=== PATIENT | male | born 1990 ===

== ENCOUNTER 2018-03-18 15:07 | Emergency (ER) | payer SELFPAY ==
[2018-03-18 15:23] VITALS: BMI 24.2
[2018-03-18 15:30] VITALS: TEMP 98.3
[2018-03-18] MEDS ORDERED: TDAP Vaccine 0.5 mL Syr IM ONE (16:17)
--- NOTE | 2018-03-18 16:17 | ED PDOC ---
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 Patient stated while carrying pipes, he stumbled into a window, causing to breaking window glass, and getting laceration. Last tetanus is [place]. Patient has FROM on affected extremity. Denies other complains. Time/Duration: Other (see hpi) Context: Home Past Medical History - Provider Review Nursing Documentation Reviewed: Yes - Psychiatric Hx Substance Use: No Family/Social History - Physician Review Nursing Documentation Reviewed: Yes Family/Social History: Other (noncontributory) Smoking Status: Light Smoker < 10 Cigarettes Daily Hx Alcohol Use: No Hx Substance Use: No Allergies/Home Meds Allergies/Adverse Reactions: Allergies No Known Allergies Allergy (Verified 03/18/18 15:22) Review of Systems - Review of Systems Constitutional: Normal. absent: Fatigue, Weight Change, Fevers, Night Sweats Eyes: Normal ENT: Normal Respiratory: Normal Cardiovascular: Normal Gastrointestinal: Normal Genitourinary Male: Normal Musculoskeletal: Normal Skin: Laceration (see hpi) Neurological: Normal Endocrine: Normal Hemo/Lymphatic: Normal Psychiatric: Normal Physical Exam Vital Signs Temp Pulse Resp BP Pulse Ox 03/18/18 15:08 98.3 F 62 20 113/70 99 Temperature: Afebrile Blood Pressure: Normal Pulse: Regular Respiratory Rate: Normal Appearance: Positive for: Well-Appearing, Non-Toxic, Comfortable Pain Distress: None Mental Status: Positive for: Alert and Oriented X 3 - Systems Exam Head: Present: Atraumatic Pupils: Present: PERRL Extroacular Muscles: Present: EOMI Conjunctiva: Present: Normal Mouth: Present: Moist Mucous Membranes Upper Extremity: Present: Normal ROM, NORMAL PULSES, Neurovascularly Intact, Capillary Refill < 2s, Other ((+) 2.6 cm left lateral wrist laceration. (+) 2 small laceration on the abterior wrist araea with superficial abrasion.) Lower Extremity: Present: Normal Inspection, Normal ROM Neurological: Present: GCS=15, CN II-XII Intact, Speech Normal Skin: Present: Warm, Dry, Normal Color. No: Rashes Psychiatric: Present: Alert, Oriented x 3, Normal Insight, Normal Concentration Medical Decision Making ED Course and Treatment: 03/18/18 16:46 Re-evaluation. Patient feels better. Discussed results and plan with patient who expresses understanding. All questions answered and there is agreement with the plan to discharge home with instructions. Patient stable for discharge. Return if symptoms persist or worsen. Patient was recommended to keep wound clean and dry for 2 days, and then to clean wound daily with soap and water. Suture to be removed by ED or PMD in 10 days. To return sooner if wound gets infected. See pmd in 2 days for wound check. Re-evaluation Time: 16:49 Reassessment Condition: Re-examined, Improved - Medication Orders Current Medication Orders: Discontinued Medications Tetanus/Reduced Diphtheria/Acell Pertussis (Boostrix Vaccine Inj) 0.5 ml IM .ONCE ONE Stop: 03/18/18 16:18 Last Admin: 03/18/18 16:46 Dose: 0.5 ml [facility] Immunization Data Document 03/18/18 16:46 [place] (Rec: 03/18/18 16:46 [place] [id number]) Immunization Data Vaccine Information Sheet Given Yes - Procedure PROCEDURE NOTE (Text): 03/18/18 16:50 PROCEDURE: LACERATION REPAIR Performed by the emergency provider Location: left wrist, 3 lac Length: 2.6 cm, 0.6cm, and 0.4 cm Description: clean wound edges, no foreign bodies Distal CMS: Normal. No deficits. Neurovascularly intact. Anesthesia: Lidocaine 1% with Epi, approx. 1 cc Preparation: The wound was cleaned with NS and [place]. The area was prepped and draped in the usual sterile fashion. Exploration: The wound was explored and no foreign bodies were found. Procedure: The wound was closed with 5-0 nylon, single layer, interrupted. There was good approximation. In total, 7 sutures were used, total 3.6 cm. Post-Procedure: Good closure and hemostasis. The patient tolerated the procedure well and there were no complications. CSM remains intact. Post procedure dressing applied. Disposition/Present on Arrival - Present on Arrival Any Indicators Present on Arrival: No History of DVT/PE: No History of Uncontrolled Diabetes: No Urinary Catheter: No History of Decub. Ulcer: No History Surgical Site Infection Following: None - Disposition Have Diagnosis and Disposition been Completed?: Yes Diagnosis: Wrist laceration Disposition: HOME/ ROUTINE Disposition Time: 17:04 Patient Plan: Discharge Patient Problems: Current Active Problems Problem Status Onset Wrist laceration Acute Condition: GOOD Discharge Instructions (ExitCare): Laceration Repair With Stitches (DC) Additional Instructions: Call private doctor for follow up visit in 1-2 days for wound check. Keep wound clean and dry for 2 days, then clean wound daily with soap and water daily. take medication as instructed. Return to emergency if symptoms worsen. Return to ED in 10 days to have sutures removed. Prescriptions: Cephalexin [cephalexin] 500 mg PO QID #12 cap Referrals: [facility] [Outside] - Follow up with primary Rose Dumont MD [Medical Doctor] - Follow up with primary Forms: [facility] ([place]), WORK NOTE
[2018-03-18 17:24] VITALS: BP 115/68; PULSE 61; RESP 18; O2SAT 100
== END 2018-03-18 17:23 | disposition home or self-care (01) ==
LOC: ED 15:07
DX: S51.812A Laceration without foreign body of left forearm, initial encounter (principal); W25.XXXA Contact with sharp glass, initial encounter; Y92.009 Unspecified place in unspecified non-institutional (private) residence as the place of occurrence of the external cause; F17.210 Nicotine dependence, cigarettes, uncomplicated; Z23 Encounter for immunization

== ENCOUNTER 2018-03-28 17:06 | Emergency (ER) | payer MEDICAID ==
[2018-03-28 17:06] VITALS: BMI 24.2
[2018-03-28 17:17] VITALS: BP 109/62; PULSE 62; RESP 18; TEMP 98.7; O2SAT 98
--- NOTE | 2018-03-28 17:33 | ED PDOC ---
Arrival/HPI - General Chief Complaint: Suture/Staple Removal Time Seen by Provider: 03/28/18 17:19 - History of Present Illness Narrative History of Present Illness (Text): 03/28/18 17:30 27 yo male, presents for suture removal. pt received 7 sutures previously. denies any other complaint, pain, weakness, swelling numbness. Past Medical History - Infectious Disease Hx of Infectious Diseases: None - Psychiatric Hx Substance Use: No - Anesthesia Hx Anesthesia: No Family/Social History Family/Social History: Unknown Family HX Smoking Status: Light Smoker < 10 Cigarettes Daily Hx Alcohol Use: No Hx Substance Use: No Allergies/Home Meds Allergies/Adverse Reactions: Allergies No Known Allergies Allergy (Verified 03/18/18 15:22) Home Medications: Home Meds Medication Instructions Recorded Confirmed No Known Home Med 03/28/18 03/28/18 Review of Systems - Review of Systems Constitutional: Normal Eyes: Normal ENT: Normal Respiratory: Normal Cardiovascular: Normal Gastrointestinal: Normal Genitourinary Male: Normal Musculoskeletal: Normal Skin: Laceration Neurological: Normal Endocrine: Normal Hemo/Lymphatic: Normal Psychiatric: Normal Physical Exam Vital Signs Temp Pulse Resp BP Pulse Ox 03/28/18 17:15 98.7 F 62 18 109/62 98 Temperature: Afebrile Blood Pressure: Normal Pulse: Regular Respiratory Rate: Normal Appearance: Positive for: Well-Appearing, Non-Toxic, Comfortable Pain Distress: None Mental Status: Positive for: Alert and Oriented X 3 - Systems Exam Head: Present: Atraumatic, Normocephalic Pupils: Present: PERRL Extroacular Muscles: Present: EOMI Conjunctiva: Present: Normal Mouth: Present: Moist Mucous Membranes Neck: Present: Normal Range of Motion Respiratory/Chest: Present: Clear to Auscultation, Good Air Exchange. No: Respiratory Distress, Accessory Muscle Use Cardiovascular: Present: Regular Rate and Rhythm, Normal S1, S2. No: Murmurs Abdomen: No: Tenderness, Distention, Peritoneal Signs Back: Present: Normal Inspection Upper Extremity: Present: Normal Inspection. No: Cyanosis, Edema Lower Extremity: Present: Normal Inspection. No: Edema Neurological: Present: GCS=15, CN II-XII Intact, Speech Normal Skin: Present: Warm, Dry, Normal Color, Other (wound healed c/d/i no erythema or drainage). No: Rashes Psychiatric: Present: Alert, Oriented x 3, Normal Insight, Normal Concentration Medical Decision Making ED Course and Treatment: 03/28/18 17:32 left lac healed c/d/i. Disposition/Present on Arrival - Present on Arrival Any Indicators Present on Arrival: No History of DVT/PE: No History of Uncontrolled Diabetes: No Urinary Catheter: No History of Decub. Ulcer: No History Surgical Site Infection Following: None - Disposition Have Diagnosis and Disposition been Completed?: Yes Diagnosis: Laceration Disposition: HOME/ ROUTINE Disposition Time: 05:15 Condition: STABLE Discharge Instructions (ExitCare): Stitches Removal Additional Instructions: please return to er with any worsneing symptoms or concerns.
== END 2018-03-28 17:38 | disposition home or self-care (01) ==
LOC: ED 17:06
DX: Z48.02 Encounter for removal of sutures (principal); F17.210 Nicotine dependence, cigarettes, uncomplicated